=== PATIENT | female | born 1985 | race Asian ===

== ENCOUNTER 2024-03-04 00:38 | Emergency (ER) | payer SELFPAY ==
[~2024-03-04] VITALS: Ht 167.6 cm; Wt 71.0 kg
[2024-03-04 00:44] VITALS: BP 128/80; PULSE 88; RESP 16; O2SAT 99
== END 2024-03-04 03:30 | disposition home or self-care (01) ==
LOC: ER 01:06
DX: F20.9 Schizophrenia, unspecified (principal); I50.9 Heart failure, unspecified
CPT/HCPCS: 99283